=== PATIENT | female | born 1975 | race Hispanic/Latino ===

== ENCOUNTER 2018-01-11 19:58 | Emergency (ER) | payer OTHER ==
[~2018-01-11] VITALS: Ht 167.6 cm; Wt 95.3 kg
[2018-01-11] MEDS ORDERED: TYLENOL WITH C1 EACH PO (21:14)
[2018-01-11] MEDS ORDERED: PSEUDOEPHEDRINE30 MG PO (21:14)
[2018-01-11] MEDS ORDERED: ACETAMINOPHEN/CODEINE ELIX 120-12 MG/5 ML UDC NG ONE (21:15)
[2018-01-11] MEDS ORDERED: ACETAMINOPHEN/CODEINE ELIX 120-12 MG/5 ML UDC PO ONE (21:30)
[2018-01-11 21:32] VITALS: BP 118/67
== END 2018-01-11 21:34 | disposition home or self-care (01) ==
LOC: FSED 19:58
DX: R05 Cough (principal); B34.9 Viral infection, unspecified
CPT/HCPCS: 93005; 99282

== ENCOUNTER 2019-02-20 11:29 | Emergency (ER) | payer OTHER ==
[~2019-02-20] VITALS: Ht 167.6 cm; Wt 109.0 kg
[~2019-02-20 11:29] MED LIST: PSEUDOEPHEDRINE30 MG PO; TYLENOL WITH C1 EACH PO
[2019-02-20] MEDS ORDERED: KETOROLAC TROMETHAMINE 30 MG/ML VIAL IV STA (12:02)
[2019-02-20] MEDS ORDERED: SODIUM CHLORIDE 0.9% 1000ML 1,000 ML IV STA (12:02)
[2019-02-20] MEDS ORDERED: SODIUM CHLORIDE 0.9% 1000ML 1,000 ML ONE (12:26)
[2019-02-20] MEDS ORDERED: IOPAMIDOL 370 MG/ML 200 ML INFUS..BTL INJ ONE (12:39)
[2019-02-20] MEDS ORDERED: SODIUM CHLORIDE 0.9% 50ML 50 ML ONE (12:39)
--- NOTE | 2019-02-20 13:10 | Diagnostic Imaging Report ---
EXAMINATION: CT of the abdomen and pelvis with contrast. TECHNIQUE: Helical CT images of the abdomen and pelvis were performed from the lung bases to the lesser trochanters after the intravenous administration of 100 cc of Isovue 300 and the oral administration of none. Coronal and sagittal reformatted images were obtained.Dose modulation, iterative reconstruction, and/or weight based adjustment of the mA/kV was utilized to reduce the radiation dose to as low as reasonably achievable. COMPARISON: None. CLINICAL HISTORY:Abdominal pain, vomiting and diarrhea DISCUSSION: ABDOMEN/PELVIS: LOWER THORAX:Unremarkable. HEPATOBILIARY: No focal hepatic lesions. No intra-or extrahepatic biliary ductal dilation. Cholecystectomy. SPLEEN: No splenomegaly. PANCREAS: No focal masses or ductal dilatation. ADRENALS: No adrenal nodules. KIDNEYS/URETERS: No hydronephrosis, stones, or solid mass lesions. PELVIC ORGANS/BLADDER: The bladder is normal. PERITONEUM/RETROPERITONEUM: No free air or fluid. LYMPH NODES: No intra-abdominal, retroperitoneal, pelvic or inguinal lymphadenopathy. VESSELS: Unremarkable. GI TRACT: No obstruction. Status post gastric bypass. Scattered colonic diverticula without inflammatory change. Appendix is normal. BONES AND SOFT TISSUE: No bony destructive lesions. Mild multilevel degenerative disc disease of the lower lumbar spine. IMPRESSION: No acute CT finding Signed by: Dr. George Coulter M.D. on 02/20/2019 1:06 PM
[2019-02-20 13:29] VITALS: BP 116/77
== END 2019-02-20 13:48 | disposition home or self-care (01) ==
LOC: FSED 11:29
DX: R10.31 Right lower quadrant pain (principal)
CPT/HCPCS: 74177; 80053; 81003; 81025; 85025; 85610; 96374; 99284; J1885; J7030; Q9967

== ENCOUNTER 2024-12-28 20:45 | Emergency (ER) | payer BC, OTHER ==
[~2024-12-28] VITALS: Ht 167.6 cm; Wt 108.9 kg
[2024-12-28 20:50] VITALS: PULSE 98; RESP 24; TEMP 98.8
[2024-12-28] MEDS: LORAZEPAM INJ 2 MG/ML VIAL IV ONE (21:44)
[2024-12-28] MEDS: ACETAMIN/BUTALBITAL/CAFFEINE TAB PO ONE (23:02)
[2024-12-28 23:03] VITALS: BP 127/84; PULSE 74; RESP 18; TEMP 98.6; O2SAT 98
== END 2024-12-28 23:07 | disposition home or self-care (01) ==
LOC: ER 21:03
DX: R06.02 Shortness of breath (principal); R09.82 Postnasal drip; M79.7 Fibromyalgia; Z98.84 Bariatric surgery status
CPT/HCPCS: 93005; 94760; 99284; J2060